=== PATIENT | male | born 1950 | race Caucasian/White ===

== ENCOUNTER 2018-07-13 13:39 | Emergency (ER) | payer OTHER ==
[2018-07-13] MEDS ORDERED: Tetan/Diph/Pertus SYR(Tdap)* 0.5 ML SYR(BOOSTRIX) use SYR IM ONE ×2 (16:10→16:43)
[2018-07-13] MEDS ORDERED: Rabies Vaccine (RabAvert)* 2.5 UNITS VIAL ONE (16:10)
[2018-07-13] MEDS ORDERED: Rabies Immune Globulin 2 ML* 150 UNITS/ML VIAL ONE (16:10)
[2018-07-13] MEDS ORDERED: Rabies Immune Globulin 2 ML* 150 UNITS/ML VIAL (KEDRAB) IM ONE (16:22)
[2018-07-13] MEDS ORDERED: Rabies Vaccine (RabAvert)* 2.5 UNITS VIAL IM ONE (16:44)
[2018-07-13 17:25] VITALS: BP 163/71
--- NOTE | 2018-07-14 05:38 | ED ---
Bite Injury/Animal - HPI Summary HPI Summary: Patient is a 68-year-old male presenting to the ED with a raccoon bite to the left anterior randall. Patient states he called the health Department who advised him to come to the ED. Patient was able to kill a raccoon and keep the raccoon for testing. He states the raccoon bit him while coming out of a trash can. He denies any pain. 2 small puncture wounds to the left anterior randall. No other bite rodriguez. He has never had rabies prophylaxis in the past. Tetanus is not up to date. He denies fevers, sweats, chills. - History of Current Complaint Chief Complaint: EDAnimalBite Stated Complaint: RACCOON BITE Time Seen by Provider: 07/13/18 14:43 Hx Obtained From: Patient Onset of Injury: Happened hours ago Type of Bite: Animal Hx of Bite: Unprovoked Has Animal Been Immunized?: No Severity Initially: Mild Severity Currently: None Pain Intensity: 0 Pain Scale Used: 0-10 Numeric Character: Puncture Associated Signs And Symptoms: Positive: Negative Animal Available for Observation: No Animal Control Notified: No - Risk Factors Infection/Sepsis Risk Factors: Negative - Allergies/Home Medications Allergies/Adverse Reactions: Allergies Allergy/AdvReac Type Severity Reaction Status Date / Time No Known Allergies Allergy Verified 07/13/18 14:06 Home Medications: Home Medications Insulin Glargine,Hum.rec.anlog [Lantus] 24 unit SC DAILY WITH MEAL 07/13/18 [ History Confirmed 07/13/18] glyBURIDE [Glyburide] 5 mg PO BID 07/13/18 [History Confirmed 07/13/18] metFORMIN* [Glucophage 1000 MG TAB *] 1,000 mg PO BID 07/13/18 [History Confirmed 07/13/18] PMH/Surg Hx/FS Hx/Imm Hx Previously Healthy: Yes - Immunization History Hx Pertussis Vaccination: No Immunizations Up to Date: Yes Infectious Disease History: No Infectious Disease History: Denies: Traveled Outside the [place] in Last 30 Days - Social History Occupation: Unemployed Lives: With Family Alcohol Use: None Hx Substance Use: No Substance Use Type: Reports: None Hx Tobacco Use: No Smoking Status (MU): Never Smoked Tobacco Review of Systems Negative: Fever, Chills, Fatigue, Skin Diaphoresis Negative: Palpitations, Chest Pain Negative: Shortness Of Breath, Cough Genitourinary: Negative Positive: no symptoms reported, see HPI Negative: Arthralgia, Myalgia Negative: Rash, Bruising, Other - bite wound to the anterior left randall Neurological: Negative All Other Systems Reviewed And Are Negative: Yes Physical Exam Triage Information Reviewed: Yes Vital Signs On Initial Exam: Initial Vitals Temp Pulse Resp BP Pulse Ox 97.9 F 92 20 134/83 98 07/13/18 14:03 07/13/18 14:03 07/13/18 14:03 07/13/18 14:03 07/13/18 14:03 Vital Signs Reviewed: Yes Appearance: Positive: Well-Appearing, Well-Nourished Skin: Positive: Warm, Skin Color Reflects Adequate Perfusion, Other - 2 puncture wounds to the anterior randall just distally from the knee Head/Face: Positive: Normal Head/Face Inspection Eyes: Positive: EOMI, IRENE, Conjunctiva Clear Neck: Positive: Supple, No Lymphadenopathy Respiratory/Lung Sounds: Positive: Clear to Auscultation, Breath Sounds Present Cardiovascular: Positive: RRR, Pulses are Symmetrical in both Upper and Lower Extremities Musculoskeletal: Positive: Normal, Strength/ROM Intact Neurological: Positive: Alert, Oriented to Person Place, Time Psychiatric: Positive: Affect/Mood Appropriate AVPU Assessment: Alert Diagnostics - Vital Signs Vital Signs Temp Pulse Resp BP Pulse Ox 07/13/18 17:24 97.5 F 81 18 163/71 98 07/13/18 14:03 97.9 F 92 20 134/83 98 - Laboratory Lab Statement: Any lab studies that have been ordered have been reviewed, and results considered in the medical decision making process. Bite Injury Course/Dx - Course Course Of Treatment: Bite by raccoon to the left leg. [facility] called and who advised prophylaxis and immunoglobulin into the wound. Rabies vaccine 2.5 ( rabavert) given. Tdap not current and given .5ml IM. [facility] advised d/t high risk animal (bat) and based on patients weight to equal 11ml. 0.8 mL given into and surrounding the wound. The remaining 10.2 mL given by RN. Patient denies any pain, symptoms or open wounds. Follow up given for days 3, 7, and 14 as followed by [facility] and [facility] protocols. Patient OK with discharge and will follow up accordingly. He will have follow ups at the [facility] as directed. - Diagnoses Differential Diagnosis/HQI/PQRI: Positive: Cellulitis, Puncture, Rabies Exposure , Superficial Infection Provider Diagnosis: Raccoon bite Discharge - Sign-Out/Discharge Documenting (check all that apply): Patient Departure - Discharge Plan Condition: Stable Disposition: HOME Referrals: Theodora Amos [Primary Care Provider] - Additional Instructions: Please follow up on day 3, 7, and 14 for further management - Billing Disposition and Condition Condition: STABLE Disposition: Home
== END 2018-07-13 17:25 | disposition home or self-care (01) ==
LOC: ED 13:39
DX: S81.852A Open bite, left lower leg, initial encounter (principal); W55.51XA Bitten by raccoon, initial encounter; Y92.9 Unspecified place or not applicable; Z23 Encounter for immunization; Z29.14 Encounter for prophylactic rabies immune globulin
CPT/HCPCS: 90375; 90471; 90675; 90715; 96372; 99281

== ENCOUNTER 2022-08-30 17:04 | Observation (INO) ==
[2022-08-31 00:21] LABS: ABS Basophils 0.1 10^3/ul (0-0.2); ABS Eosinophils 0.7 10^3/ul (0-0.6); ABS Lymphocytes 1.1 10^3/ul (1.0-4.8); ABS Monocytes 0.6 10^3/ul (0-0.8); ABS Neutrophils 5.5 10^3/ul (1.5-7.7); Eosinophil % 8.3 %; Hematocrit 35 % (42-52); Hemoglobin 11.4 g/dL (14.0-18.0); Lymphocyte % 14.2 %; Mean Corpuscular HGB Conc 32 g/dL (31-36); Mean Corpuscular Hemoglobin 30 pg (27-31); Mean Corpuscular Volume 91 fL (80-94); Mean Platelet Volume 8.1 fL (7.4-10.4); Platelet Count 230 10^3/uL (150-450); Red Blood Count 3.87 10^6 /uL (4.18-5.48); Red Cell Distribution Width 16 % (10-15); White Blood Count 7.9 10^3/uL (3.5-10.8)
[2022-08-31 00:26] LABS: INR 1.06 (0.88-1.18)
[2022-08-31 01:02] LABS: Albumin 3.6 g/dL (3.2-5.2); Albumin/Globulin Ratio 1.3 (1-3); C Reactive Protein 13.34 mg/L (<8.01); Calcium 9.2 mg/dL (8.6-10.3); Creatinine, Serum 2.73 mg/dL (0.67-1.17); Globulin 2.8 g/dL (2-4); Potassium 4.2 mmol/L (3.5-5.0); Total Bilirubin 0.5 mg/dL (0.2-1.0); Total Protein 6.4 g/dL (6.4-8.9); eGFR CKD-EPI 23.7 (>60)
[2022-08-31 02:27] LABS: High Sensitivity Troponin 1 Hr 34 pg/mL (<20)
[2022-08-31] MEDS ORDERED: Furosemide 40 mg/4 ml IV VIAL IV SLOW PU ONE (03:32)
[2022-08-31] MEDS ORDERED: Dextrose 50% Syringe 50 ml 25 GM/50 ML SYRINGE IV PUSH PRN (03:32)
[2022-08-31] MEDS: Enoxaparin 30 MG/0.3 ML SYR SUBCUT SCH (05:14)
[2022-08-31 05:28] LABS: Magnesium 1.7 mg/dL (1.9-2.7)
[2022-08-31] MEDS ORDERED: Magnesium Sulfate IV 3 GM in NS 0.9% 100 ml BAG 100 ML IVPB ONE ×2 (06:15→07:53)
[2022-08-31 06:21] LABS: Calcium 8.3 mg/dL (8.6-10.3); Creatinine, Serum 2.38 mg/dL (0.67-1.17); Magnesium 1.5 mg/dL (1.9-2.7); Potassium 3.5 mmol/L (3.5-5.0); eGFR CKD-EPI 27.9 (>60)
[2022-08-31] MEDS ORDERED: Potassium Chlor 20 meq TAB.ER PO ONE (06:45)
[2022-08-31] MEDS: Cholecalciferol (VIT D3) 1,000 unit TAB PO SCH (07:32)
[2022-08-31] MEDS ORDERED: Furosemide 40 mg/4 ml IV VIAL IV ONE (11:05)
[2022-08-31 14:51] LABS: Calcium 9.4 mg/dL (8.6-10.3); Creatinine, Serum 2.56 mg/dL (0.67-1.17); Potassium 4.4 mmol/L (3.5-5.0); eGFR CKD-EPI 25.6 (>60)
[2022-08-31 15:14] LABS: Urine Appearance Clear; Urine Bilirubin Negative (Negative); Urine Blood 1+ (Negative); Urine Color Colorless; Urine Glucose Negative (Negative); Urine Ketones Negative (Negative); Urine Nitrite Negative (Negative); Urine Protein 2+(100 mg/dL) (Negative); Urine Specific Gravity 1.006 (1.002-1.030); Urine Urobilinogen Negative (Negative)
[2022-08-31 15:19] LABS: Urine Bacteria Absent (Absent); Urine Red Blood Cell Trace(0-2/hpf) (Absent); Urine White Blood Cell Absent (Absent)
[2022-08-31 15:52] LABS: Magnesium 2.5 mg/dL (1.9-2.7)
[2022-08-31] MEDS ORDERED: Labetalol IV 5 MG/ML 20 ml VIAL IV PUSH ONE (18:47)
[2022-08-31] MEDS: Insulin GLARGINE 100 un/ml 10 ml VIAL SUBCUT SCH (21:42)
[2022-09-01] MEDS: Enoxaparin 30 MG/0.3 ML SYR SUBCUT SCH (05:31)
[2022-09-01 06:26] LABS: ABS Basophils 0.1 10^3/ul (0-0.2); ABS Eosinophils 0.5 10^3/ul (0-0.6); ABS Lymphocytes 0.9 10^3/ul (1.0-4.8); ABS Monocytes 0.5 10^3/ul (0-0.8); Eosinophil % 7.6 %; Hematocrit 38 % (42-52); Hemoglobin 12.4 g/dL (14.0-18.0); Lymphocyte % 12.8 %; Mean Corpuscular HGB Conc 33 g/dL (31-36); Mean Corpuscular Hemoglobin 30 pg (27-31); Mean Corpuscular Volume 90 fL (80-94); Mean Platelet Volume 8.6 fL (7.4-10.4); Platelet Count 232 10^3/uL (150-450); Red Blood Count 4.21 10^6 /uL (4.18-5.48); Red Cell Distribution Width 16 % (10-15); White Blood Count 7.1 10^3/uL (3.5-10.8)
[2022-09-01 06:48] LABS: Albumin 3.4 g/dL (3.2-5.2); Albumin/Globulin Ratio 1.3 (1-3); Calcium 9.2 mg/dL (8.6-10.3); Creatinine, Serum 2.4 mg/dL (0.67-1.17); Direct Bilirubin 0.1 mg/dL (0.03-0.18); Globulin 2.6 g/dL (2-4); Indirect Bilirubin 0.3 mg/dL (0.3-1.0); Magnesium 2.1 mg/dL (1.9-2.7); Potassium 4.2 mmol/L (3.5-5.0); Total Bilirubin 0.4 mg/dL (0.2-1.0); eGFR CKD-EPI 27.6 (>60)
[2022-09-01] MEDS: Cholecalciferol (VIT D3) 1,000 unit TAB PO SCH (09:40)
[2022-09-01 12:56] LABS: HDL Cholesterol 44.3 mg/dL
[2022-09-01] MEDS ORDERED: Insulin GLARGINE 100 un/ml 10 ml VIAL SUBCUT SCH (22:00)
[2022-09-02] MEDS: Insulin GLARGINE 100 un/ml 10 ml VIAL SUBCUT SCH (02:29)
[2022-09-02] MEDS: Enoxaparin 30 MG/0.3 ML SYR SUBCUT SCH (05:38)
[2022-09-02 07:19] LABS: Calcium 8.7 mg/dL (8.6-10.3); Creatinine, Serum 2.49 mg/dL (0.67-1.17); Magnesium 1.9 mg/dL (1.9-2.7); Potassium 4.1 mmol/L (3.5-5.0); eGFR CKD-EPI 26.4 (>60)
[2022-09-02] MEDS ORDERED: Magnesium Sulfate IV 1GM/100ML 1 GM/100 ML BAG IV ONE (07:25)
[2022-09-02] MEDS: Cholecalciferol (VIT D3) 1,000 unit TAB PO SCH (08:17)
[2022-09-02 10:39] VITALS: BP 110/54
== END 2022-09-02 11:30 | disposition home or self-care (01) ==
LOC: EDHOLD 17:04 → ED 17:04 → SUATTDRO 08-31 03:29 → MEDTELE 08-31 20:09
PROVIDERS: ADMIT Hospitalist; ATTEND Internal Medicine